=== PATIENT | male | born 1990 | race Caucasian/White ===

== ENCOUNTER 2018-06-05 15:08 | Emergency (ER) | payer MEDICAID ==
[~2018-06-05] VITALS: Ht 170.2 cm; Wt 77.3 kg
[2018-06-05] MEDS ORDERED: IBUPROFEN 800 MG TABLET PO ONE (17:00)
[2018-06-05 17:30] VITALS: BP 147/90
== END 2018-06-05 18:03 | disposition home or self-care (01) ==
LOC: EMS 15:09
DX: S01.511A Laceration without foreign body of lip, initial encounter (principal); S01.512A Laceration without foreign body of oral cavity, initial encounter; F17.210 Nicotine dependence, cigarettes, uncomplicated; W22.8XXA Striking against or struck by other objects, initial encounter; Y93.89 Activity, other specified; Y92.89 Other specified places as the place of occurrence of the external cause; Y99.8 Other external cause status
CPT/HCPCS: 70486